=== PATIENT | female | born 1965 | race Caucasian/White ===

== ENCOUNTER 2019-09-02 10:42 | Inpatient (IN) | payer SELFPAY ==
[~2019-09-02] VITALS: Ht 172.7 cm; Wt 81.6 kg
[2019-09-02] MEDS ORDERED: ALBUTEROL SULF 0.083% NEB SOLN 3 ML NEB NEB STA (11:04)
[2019-09-02] MEDS ORDERED: IPRATROPIUM BROMIDE 0.02% 2.5 ML NEB NEB STA (11:04)
[2019-09-02] MEDS ORDERED: ACETAMINOPHEN/CODEINE ELIX 120-12 MG/5 ML UDC PO ONE (11:15)
[2019-09-02] MEDS ORDERED: DEXAMETHASONE SOD PHOS 10 MG/1 ML VIAL IM ONE (11:15)
[2019-09-02] MEDS ORDERED: SODIUM CHLORIDE 0.9% 1000ML 1,000 ML IV STA (13:40)
--- NOTE | 2019-09-02 13:45 | Diagnostic Imaging Report ---
Chest, 2 views, 09/02/2019. History: Shortness of breath. Comparison: None available. Findings: The cardiomediastinal silhouette and pulmonary vasculature are within normal limits. There is patchy left basilar opacity partially obscuring the posterior left hemidiaphragm. Median sternotomy wires are present. There are no acute osseous or soft tissue abnormalities. Impression: Left basilar opacity may represent atelectasis but early pneumonia cannot be excluded. Correlate clinically. Signed by: Ravinder Brink on 09/02/2019 1:42 PM
[2019-09-02] MEDS ORDERED: SODIUM CHLORIDE 0.9% 1000ML 1,000 ML IV ONE (14:00)
[2019-09-02] MEDS ORDERED: CEFTRIAXONE SOD 2 GM/NS 100 ML 100 ML IV ONE (14:00)
[2019-09-02] MEDS ORDERED: AZITHROMYCIN 500MG/NS 250 ML 250 ML IV ONE (14:00)
[2019-09-02 14:40] LABS: BASOPHILS % 0.2 % (0.0-1.0); EOSINOPHILS % 0.2 % (0.0-6.0); HEMATOCRIT 39.3 % (34.2-44.1); LYMPHOCYTES # (AUTO) 0.6 (1.0-3.2); LYMPHOCYTES % 4.3 % (18.0-39.1); MEAN CORPUSCULAR HEMOGLOBIN 30.8 pg (28-32); MEAN CORPUSCULAR HGB CONC 33.1 g/dL (31-35); MEAN CORPUSCULAR VOLUME 93.1 fL (81-99); MONOCYTES # (AUTO) 0.5 (0.2-0.8); MONOCYTES % 3.1 % (4.4-11.3); NEUTROPHILS # (AUTO) 13.5 (2.1-6.9); NEUTROPHILS % 91.6 % (38.7-80.0); PLATELET COUNT 447 x10e3/uL (140-360); RED BLOOD COUNT 4.22 x10e6/uL (3.6-5.1); RED CELL DISTRIBUTION WIDTH 11.8 % (11.7-14.4)
[2019-09-02 14:54] LABS: ALANINE AMINOTRANSFERASE 14 IU/L (0-55); ALBUMIN 2.8 g/dL (3.5-5.0); ALBUMIN/GLOBULIN RATIO 0.7 (0.8-2.0); ALKALINE PHOSPHATASE 68 IU/L (40-150); ANION GAP 14.9 mmol/L (8-16); BLOOD UREA NITROGEN 10 mg/dL (7-26); BUN/CREATININE RATIO 15 (6-25); CALCIUM 9.3 mg/dL (8.4-10.2); CARBON DIOXIDE 23 mmol/L (22-29); CHLORIDE 101 mmol/L (98-107); CREATININE, SERUM 0.67 mg/dL (0.57-1.11); EST GLOMERULAR FILTRATION RATE > 60 ML/MIN (60-); GLUCOSE 133 mg/dL (74-118); POTASSIUM 3.9 mmol/L (3.5-5.1); SODIUM 135 mmol/L (136-145)
[2019-09-02] MEDS ORDERED: ALBUTEROL/IPRATROPIUM 3 ML NEB NEB ONE (16:00)
[2019-09-02] MEDS ORDERED: CEFTRIAXONE SOD 1 GRAM/0.9% SOD CHL 50ML BAG IV SCH (16:15)
[2019-09-02] MEDS ORDERED: SODIUM CHLORIDE FLUSH 10 ML SYR INJ PRN (16:15)
[2019-09-02] MEDS ORDERED: ASPIRIN 81 MG CHEW TAB PO ONE (16:15)
[2019-09-02] MEDS ORDERED: AZITHROMYCIN 500MG/SOD CHL 0.9% 250ML BAG IV SCH (16:15)
[2019-09-02] MEDS: ALBUTEROL SULF 0.083% NEB SOLN 3 ML NEB NEB SCH ×3 (16:30→23:50)
--- NOTE | 2019-09-02 17:11 | Diagnostic Imaging Report ---
CT of the chest, with contrast, 09/02/2019. History: Shortness of breath. Abnormal prior chest x-ray. Comparison: Chest x-ray from earlier today. Technique: Multidetector CT scanning of the chest was performed from the level of the apices to the upper abdomen after intravenous administration of contrast. Coronal and sagittal multiplanar reformations were obtained. RADIATION DOSE: Total DLP: 5:15 mGy*cm Dose modulation, iterative reconstruction, and/or weight based adjustment of the mA/kV was utilized to reduce the radiation dose to as low as reasonably achievable. Discussion: Chest: The atria, ventricles, aorta, and main pulmonary artery are normal in size. The thyroid is unremarkable. Subcentimeter mediastinal and hilar nodes are present. There is no evidence of axillary or mediastinal adenopathy. Patchy consolidation is present in the medial and posterior segments of the left lower lobe, corresponding to the radiographic abnormality. There is no evidence of pleural effusion. Scattered peripheral nodular opacities are present throughout the right lower lobe and both upper lobes. Limited evaluation of the upper abdomen shows normal adrenal glands. Bones and soft tissues: No acute abnormality. Degenerative changes are noted in the thoracic spine. Median sternotomy wires are present. IMPRESSION: Findings consistent with left lower lobe pneumonia. Signed by: Ravinder Brink on 09/02/2019 5:08 PM
[2019-09-02] MEDS: NICOTINE 7 MG PATCH TOP SCH (18:16)
[2019-09-02] MEDS: FAMOTIDINE 20 MG/2 ML VIAL IV SCH (18:16)
[2019-09-02] MEDS: AZITHROMYCIN 500MG/NS 250 ML 250 ML IV SCH (18:16)
[2019-09-02] MEDS ORDERED: IOPAMIDOL 370 MG/ML 200 ML INFUS..BTL INJ ONE (18:19)
[2019-09-02] MEDS ORDERED: SODIUM CHLORIDE 0.9% 50ML 50 ML ONE (18:19)
[2019-09-02] MEDS: IPRATROPIUM BROMIDE 0.02% 2.5 ML NEB NEB SCH ×2 (20:30→23:50)
--- NOTE | 2019-09-02 22:29 | NUR ---
History of present illness: 53-year-old lady who is being admitted to the hospital with an impression of bacterial pneumonia. I did speak with the ED physician Dr. Lange who did advise him about patient's condition. The patient was noted to have a WBC count of 14.7 and lactic acid was negative. The patient is being placed on intr avenous antibiotics and sepsis is not suspected. Basically patient presented with a chief complaint of having Fever and chills along with muscle ache and flulike type symptoms. The symptoms have been going on during the last 2 weeks or so getting worse today which is 09/02/2019. She was placed on treatment for bronchitis at another ER facility approximately 2 weeks ago and given breathing treatments along with Tamiflu. Despite all this she has not have enough improvement. Past medical history: Past surgical history: No previous surgery Medication currently taking per chart: Allergies: Per chart Social history: Unknown if the patient has smoked. No alcohol abuse Physical examination: Did reveal a patient alert oriented person time place the patient was in no distress at the time of arrival to the emergency department and had an O2 saturation of 93% respiratory 24: HEENT: Nose normal, pharynx abnormal, mild generalized pharyngeal erythema. No pharyngeal vesicles or ulcerations. Uvula midline. Neck: Supple no JVD Lungs: Clear to auscultation Heart: Regular rate and rhythm, no murmurs no gallops Abdomen: Soft non tender, no guarding. Extremities: No edema Neurologic: Alert oriented 3, no focal weakness. Psychiatrist: Normal mood, normal judgment. Skin: No rashes EKG: No acute ischemia. Normal sinus rhythm. Rate 26. Chest x-rays: Left basilar opacity. Assessment: Pneumonia Leukocytosis Plan of care: The patient been placed on azithromycin and Rocephin intravenously. Patient is being placed on breathing treatments consist of albuterol every 4 hours and Atrovent. The patient was given dose of aspirin. Follow-up labs.
--- NOTE | 2019-09-02 22:29 | NUR ---
History of present illness: 53-year-old lady who is being admitted to the hospital with an impression of bacterial pneumonia. I did speak with the ED physician Dr. Lange who did advise him about patient's condition. The patient was noted to have a WBC count of 14.7 and lactic acid was negative. The patient is being placed on intr avenous antibiotics and sepsis is not suspected. Basically patient presented with a chief complaint of having Fever and chills along with muscle ache and flulike type symptoms. The symptoms have been going on during the last 2 weeks or so getting worse today which is 09/02/2019. She was placed on treatment for bronchitis at another ER facility approximately 2 weeks ago and given breathing treatments along with Tamiflu. Despite all this she has not have enough improvement. Past medical history: Has been healthy with no significant medical problems. No hypertension. No diabetes mellitus. No history of myocardial infarction. No CVA. Past surgical history: No previous surgery Family history: There is a family history of hypertension, kidney failure, coronary disease and non leukemic lymphatic malignancy. Medication currently taking per chart: Allergies: Per chart Social history: Unknown if the patient has smoked. No alcohol abuse Physical examination: Did reveal a patient alert oriented person time place the patient was in no distress at the time of arrival to the emergency department and had an O2 saturation of 93% respiratory 24: Blood pressure: 116/52, respiration 18, pulse 85, temperature 97.6 HEENT: Nose normal, pharynx abnormal, mild generalized pharyngeal erythema. No pharyngeal vesicles or ulcerations. Uvula midline. Neck: Supple no JVD Lungs: No respiratory distress. Abnormal breathing sounds. Wheezing present. Decreased breathing sounds Heart: Regular rate and rhythm, no murmurs no gallops Abdomen: Soft non tender, no guarding. Extremities: No edema Neurologic: Alert oriented 3, no focal weakness. Psychiatrist: Normal mood, normal judgment. Skin: No rashes EKG: No acute ischemia. Normal sinus rhythm. Rate 26. Chest x-rays: Left basilar opacity. Assessment: Pneumonia Leukocytosis Plan of care: The patient been placed on azithromycin and Rocephin intravenously. Patient is being placed on breathing treatments consist of albuterol every 4 hours and Atrovent. Please medications noted
[2019-09-02 23:00] VITALS: BP 116/52
--- NOTE | 2019-09-02 23:00 | NUR ---
patient received from the emergency room per wheelchair, assessment done.
--- NOTE | 2019-09-02 23:32 | NUR ---
DR. PITTS WITH ESCALATOR MECHANIC VISITED.
[2019-09-03] VITALS (8 sets, daily range): BP systolic 99–119; BP diastolic 53–67
[2019-09-03] MEDS: ACETAMINOPHEN/CODEINE ELIX 120-12 MG/5 ML UDC PO PRN ×3 (01:26→16:53)
[2019-09-03] MEDS: ALBUTEROL SULF 0.083% NEB SOLN 3 ML NEB NEB SCH ×6 (02:58→23:48)
--- NOTE | 2019-09-03 05:29 | NUR ---
PATIENT WENT FOR CHEST XRAY.
--- NOTE | 2019-09-03 06:18 | Diagnostic Imaging Report ---
EXAMINATION: CHEST 2 VIEWS INDICATION: ^Pneumonia ^[id number] ^0501 COMPARISON: 09/02/2019 FINDINGS: PA and lateral views TUBES and LINES: None. LUNGS: Lungs are well inflated. Less conspicuous left basilar opacities. PLEURA: No pleural effusion or pneumothorax. HEART AND MEDIASTINUM: The cardiomediastinal silhouette is unremarkable. Median sternotomy wires. BONES AND SOFT TISSUES: No acute osseous lesion. Soft tissues are unremarkable. UPPER ABDOMEN: No free air under the diaphragm. IMPRESSION: Less conspicuous left basilar opacities when compared to prior x-ray. Signed by: Dr. Breezy Troncoso MD on 09/03/2019 6:14 AM
[2019-09-03 06:29] LABS: ALANINE AMINOTRANSFERASE 12 IU/L (0-55); ALBUMIN 2.5 g/dL (3.5-5.0); ALBUMIN/GLOBULIN RATIO 0.7 (0.8-2.0); ALKALINE PHOSPHATASE 56 IU/L (40-150); BLOOD UREA NITROGEN 12 mg/dL (7-26); BUN/CREATININE RATIO 19 (6-25); CALCIUM 8.9 mg/dL (8.4-10.2); CARBON DIOXIDE 24 mmol/L (22-29); CHLORIDE 106 mmol/L (98-107); CREATINE KINASE 24 IU/L (29-168); CREATININE, SERUM 0.63 mg/dL (0.57-1.11); EST GLOMERULAR FILTRATION RATE > 60 ML/MIN (60-); GLUCOSE 118 mg/dL (74-118); SODIUM 137 mmol/L (136-145)
--- NOTE | 2019-09-03 07:00 | NUR ---
received am report and rounds done. pt is alert resting in bed, no s/s of distress. call light within reach and instructed pt to call RN for help. NC re-applied to pt with 2 L of oxygen
[2019-09-03 07:11] LABS: BASOPHILS % 0.1 % (0.0-1.0); HEMATOCRIT 35.3 % (34.2-44.1); HEMOGLOBIN 11.5 g/dL (12.0-16.0); LYMPHOCYTES # (AUTO) 0.8 (1.0-3.2); LYMPHOCYTES % 6.3 % (18.0-39.1); MEAN CORPUSCULAR HEMOGLOBIN 30.4 pg (28-32); MEAN CORPUSCULAR HGB CONC 32.6 g/dL (31-35); MEAN CORPUSCULAR VOLUME 93.4 fL (81-99); MONOCYTES # (AUTO) 0.7 (0.2-0.8); MONOCYTES % 5.5 % (4.4-11.3); NEUTROPHILS # (AUTO) 10.8 (2.1-6.9); NEUTROPHILS % 87.5 % (38.7-80.0); PLATELET COUNT 457 x10e3/uL (140-360); RED BLOOD COUNT 3.78 x10e6/uL (3.6-5.1); RED CELL DISTRIBUTION WIDTH 11.9 % (11.7-14.4)
[2019-09-03] MEDS: IPRATROPIUM BROMIDE 0.02% 2.5 ML NEB NEB SCH ×4 (07:16→23:48)
[2019-09-03] MEDS: FAMOTIDINE 20 MG/2 ML VIAL IV SCH ×2 (08:53→16:52)
[2019-09-03] MEDS ORDERED: SODIUM CHLORIDE 0.9% 250ML 250 ML ONE (13:23)
[2019-09-03] MEDS: CEFTRIAXONE SOD 1 GM/NS 50 ML 50 ML IV SCH (13:27)
[2019-09-03] MEDS: ENOXAPARIN SOD INJ 40 MG/0.4 ML SYR SC SCH (13:33)
[2019-09-03] MEDS ORDERED: ACETAMINOPHEN 325 MG TAB PO PRN (15:15)
[2019-09-03 15:19] LABS: CREATINE KINASE MB 0.8 ng/mL (0-5.0)
[2019-09-03] MEDS: NICOTINE 7 MG PATCH TOP SCH (16:52)
[2019-09-03] MEDS: AZITHROMYCIN 500MG/NS 250 ML 250 ML IV SCH (16:52)
--- NOTE | 2019-09-03 20:00 | NUR ---
RECEIVED REPORT FROM 7AM NURSE, PATIENT RESTING IN BED WATCHING TV, C/O HEADACHE, WILL MEDICATE ORDERED. WILL CONTINUE TO MONITOR.
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
[2019-09-04] VITALS (7 sets, daily range): BP systolic 102–124; BP diastolic 57–67
--- NOTE | 2019-09-04 | NUR ---
PATIENT'S ASLEEP, NO DISTRESS NOTED. CALL LIGHT REMAIN IN REACH. WILL CONTINUE TO MONITOR.
--- NOTE | 2019-09-04 00:14 | Progress Note ---
DATE: 09/03/2019 SUBJECTIVE: The patient was doing fine, looking better. Denies nausea or vomiting. No chest pain. No fevers or chills. OBJECTIVE: GENERAL: The patient is alert and oriented to person, time, and place. The patient in no distress. VITAL SIGNS: Stable vital signs. Her blood pressure 118/63, respirations 17, pulse 82, afebrile. HEENT: Normocephalic and atraumatic. NECK: Supple. No JVD. LUNGS: decreased breathing sounds. CARDIOVASCULAR: Regular rate and rhythm. ABDOMEN: Soft and nontender. EXTREMITIES: No edema. NEUROLOGIC: Nonfocal. ASSESSMENT: 1. Pneumonia. 2. Leukocytosis. PLAN OF CARE: plan to do MRCP. MD LENIN Maravilla/LUDMILA /[id number] MTDYoung
[2019-09-04] MEDS ORDERED: PROAIR HFA INH8.5 GM INH (00:37)
[2019-09-04] MEDS ORDERED: AUGMENTIN 875-1 EACH PO (00:37)
[2019-09-04] MEDS: ALBUTEROL SULF 0.083% NEB SOLN 3 ML NEB NEB SCH ×5 (02:40→19:00)
--- NOTE | 2019-09-04 07:17 | NUR ---
REPORT GIVEN TO AM NURSE.
--- NOTE | 2019-09-04 07:27 | NUR ---
Received patient, a/ox3, rounds completed, no distress, minimal pain from coughing, substernal area, but well managed, call light within reach, will monitor. On O2, will attempt to wean off
[2019-09-04] MEDS: IPRATROPIUM BROMIDE 0.02% 2.5 ML NEB NEB SCH ×3 (07:47→19:00)
[2019-09-04 07:54] LABS: HIV 1&2 AB SCREEN NON-REACTIVE (NONREACTIVE)
[2019-09-04] MEDS: ACETAMINOPHEN/CODEINE ELIX 120-12 MG/5 ML UDC PO PRN ×2 (08:16→14:06)
[2019-09-04] MEDS: ENOXAPARIN SOD INJ 40 MG/0.4 ML SYR SC SCH (08:55)
[2019-09-04] MEDS: FAMOTIDINE 20 MG/2 ML VIAL IV SCH ×2 (08:55→17:15)
[2019-09-04] MEDS ORDERED: DOCUSATE SODIUM 100 MG CAP PO SCH (09:00)
--- NOTE | 2019-09-04 09:10 | Diagnostic Imaging Report ---
EXAMINATION: CHEST SINGLE (PORTABLE) INDICATION: Pneumonia COMPARISON: Chest radiograph 09/03/2019 FINDINGS: LINES/TUBES:None LUNGS:The lungs are moderately inflated. Mild patchy opacities at the left lung base and right midlung. PLEURA:No pleural effusion or pneumothorax. MEDIASTINUM:The cardiomediastinal silhouette appears unchanged in size and shape. BONES/SOFT TISSUES:No acute osseous injury. Sternotomy wires intact. ABDOMEN:No free air under the diaphragm. IMPRESSION: Mild patchy opacities at the left lung base and right midlung, consistent with aspiration or pneumonia. These findings are better appreciated on the chest CT of 09/02/2019. Signed by: José Luis Molina MD on 09/04/2019 9:07 AM
--- NOTE | 2019-09-04 10:30 | NUR ---
PT NEEDED HOUSING OPTIONS, GAVE PACKET OF INFORMATION WITH COMMUNITY [employer]OURCES FOR ASSISTANCE WITH LOW TO NO INCOME TO PATIENT. RESOURCES THAT PATIENT MAY BE ABLE TO FOLLOW UP UPON DISCHARGE. PT EDUCATED ON EACH RESOURCE AND UNDERSTANDING HOW TO FOLLOW UP TO SEE IF QUALIFIED FOR EACH RESOURCE.
--- OUTSIDE RECORDS SUMMARY | 2019-09-04 13:56 | XMS REPORT ---
Author Author [facility] Address Unknown Phone Unavailable Care Team Providers Care Belt Notcher Name Role Phone Cedric MAJOR Unavailable Unavailable Problems This patient has no known problems. Allergies, Adverse Reactions, Alerts This patient has no known allergies or adverse reactions. Medications This patient has no known medications. Results Test Description Test Time Test Comments Text Results Atomic Results Result Comments CHEST SINGLE (PORTABLE) 2019-09-04 09:04:00 [place] [address] Patient Name: LUZMARIA WILKES MR #: [id number] : 1965 Age/Sex: 53/F Req #: [id number] [facility] Physician: ATLI MAJOR M.D. Ordered by: MARIANNE BUTT MD Report #: [id number] Location: MED/SURG Room/Bed: [facility] Procedure: [id number] DX/CHEST SINGLE (PORTABLE) Exam Date: 09/04/19 Exam Time: 0530 REPORT STATUS: Signed EXAMINATION: CHEST SINGLE (PORTABLE) INDICATION: Pneumonia COMPARISON: Chest radiograph 09/03/2019 FINDINGS: LINES/TUBES:None LUNGS:The lungs are moderately inflated. Mild patchy opacities at the left lung base and right midlung. PLEURA:No pleural effusion or pneumothorax. MEDIASTINUM:The cardiomediastinal silhouette appears unchanged in size and shape. BONES/SOFT TISSUES:No acute osseous injury. Sternotomy wires intact. ABDOMEN:No free air under the diaphragm. IMPRESSION: Mild patchy opacities at the left lung base and right midlung, consistent with aspiration or pneumonia. These findings are better appreciated on the chest CT of 09/02/2019. Signed by: Germain Cuadra MD on 09/04/2019 9:07 AM Dictated By: GERMAIN CUADRA MD 6 Transcribed By: CLARIBEL on 09/04/19906 COPY TO: MARIANNE BUTT MD, [facility] CHEST 2 VIEWS 2019-09-03 06:13:00 [place] [address] Patient Name: LUZMARIA WILKES MR #: [id number] : 1965 Age/Sex: 53/F Req #: [id number] Adm Physician: TALI MAJOR M.D. Ordered by: MARYAM PRIDE MD Report #: [id number] Location: MED/SURG Room/Bed: [facility] Procedure: [id number] DX/CHEST 2 VIEWS Exam Date: 09/03/19 Exam Time: 500 REPORT STATUS: Signed EXAMINATION: CHEST 2 VIEWS INDICATION: Pneumonia [id number] COMPARISON: 09/02/2019 FINDINGS: PA and lateral views TUBES and LINES: None. LUNGS: Lungs are well inflated. Less conspicuous left basilar opacities. PLEURA: No pleural effusion or pneumothorax. HEART AND MEDIASTINUM: The cardiomediastinal silhouette is unremarkable. Median sternotomy wires. BONES AND SOFT TISSUES: No acute osseous lesion. Soft tissues are unremarkable. UPPER ABDOMEN: No free air under the diaphragm. IMPRESSION: Less conspicuous left basilar opacities when compared to prior x-ray. Signed by: Dr. Breezy Guzman MD on 09/03/2019 6:14 AM Dictated By: BREEZY GUZMAN MD 3 Transcribed By: CLARIBEL on 09/03/19613 COPY TO: MARYAM PRIDE MD CT CHEST W 2019-09-02 17:03:00 [place] [address] Patient Name: LUZMARIA WILKES MR #: [id number] : 1965 Age/Sex: 53/F Req #: [id number] Adm Physician: Ordered by: RAVINDER ESPINOZA NP Report #: [id number] Location: ER Room/Bed: Procedure: [id number] CT/CT CHEST W Exam Date: 09/02/19 Exam Time: 1550 REPORT STATUS: Signed CT of the chest, with contrast, 09/02/2019. His tory: Shortness of breath. Abnormal prior chest x-ray. Comparison: Chest x- ray from earlier today. Technique: Multidetector CT scanning of the chest was performed from the level of the apices to the upper abdomen after intravenous administration of contrast. Coronal and sagittal multiplanar reformations were obtained. RADIATION DOSE: Total DLP: 5:15 mGy*cm Dose modulation, iterative reconstruction, and/or weight based adjustment of the mA/kV was utilized to reduce the radiation dose to as low as reasonably achievable. Discussion: Chest: The atria, ventricles, aorta, and main pulmonary artery are normal in size. The thyroid is unremarkable. Subcentimeter mediastinal and hilar nodes are present. There is no evidence of axillary or mediastinal adenopathy. Patchy consolidation is present in the medial and posterior segments of the left lower lobe, corresponding to the radiographic abnormality. There is no evidence of pleural effusion. Scattered peripheral nodular opacities are present throughout the right lower lobe and both upper lobes. Limited evaluation of the upper abdomen shows normal adrenal glands. Bones and soft tissues: No acute abnormality. Degenerative changes are noted in the thoracic spine. Median sternotomy wires are present. IMPRESSION: Findings consistent with left lower lobe pneumonia. Signed by: Ravinder Brink on 09/02/2019 5:08 PM Dictated By: RAVINDER BRINK MD 07 Transcribed By: CLARIBEL on 09/02/191707 COPY TO: RAVINDER ESPINOZA INTERNET MARKETING ANALYST CHEST 2 VIEWS 2019-09-02 13:40:00 [place] [address] Patient Name: LUZMARIA WILKES MR #: [id number] : 1965 Age/Sex: 53/F Req #: [id number] Adm Physician: Ordered by: RAVINDER ESPINOZA INTERNET MARKETING ANALYST Report #: [id number] Location: ER Room/Bed: Procedure: [id number] DX/CHEST 2 VIEWS Exam Date: 09/02/19 Exam Time: 1210 REPORT STATUS: Signed Chest, 2 views, 09/02/2019. History: Shortness of breath. Comparison: None available. Findings: The cardiomediastinal silhouette and pulmonary vasculature are within normal limits. There is patchy left basilar opacity partially obscuring the posterior left hemidiaphragm. Median sternotomy wires are present. There are no acute osseous or soft tissue abnormalities. Impression: Left basilar opacity may represent atelectasis but early pneumonia cannot be excluded. Correlate clinically. Signed by: Ravinder Brink on 09/02/2019 1:42 PM Dictated By: RAVINDER BRINK MD 134 Transcribed By: CLARIBEL on 09/02/191341 COPY TO: RAVINDER ESPINOZA NP
[2019-09-04] MEDS: CEFTRIAXONE SOD 1 GM/NS 50 ML 50 ML IV SCH (14:05)
--- NOTE | 2019-09-04 15:10 | NUR ---
Pulmonary Medicine DATE: 09/04/2019 subjective: 93-95% saturation on room air fio2 walking mildly better today REVIEW OF SYSTEMS: No double vision. No seizures. PHYSICAL EXAMINATION: VITAL SIGNS: vital signs noted reviewed per the chart record. GENERAL: no acute distress, alert and calm. Mildly anxious intermittently. HEENT: Normocephalic atraumatic. NECK: Supple. Throat midline. LUNGS: Bilateral air entry, few rare rhonchi, mostly clear. CARDIOVASCULAR: S1, S2. No murmurs, rubs, or gallops. ABDOMEN: Soft, nontender. EXTREMITIES: No clubbing. No cyanosis. There is no edema. INTEGUMENT: No rash. No purpura. LABORATORY DATA: White count 12, 35 hematocrit, 467 platelets. 4.0 potassium, 12 BUN, 0.63 creatinine. IMPRESSION AND PLAN: 1. Community-acquired pneumonia, hospital acquired organisms plausible given recent hospitalization. Mechanism is likely post influenza pneumonia. Already improving on the 1st day with white count and x-ray improving. 2. History of chronic smoke. 3. Associated anxiety. 4. History of previous substance abuse. 5. Mild leukocytosis. Outpatient chest x-ray to resolution of findings DVT prophylaxis Weaned off oxygen Discharge planning smoking cessation Thank you very much, Dr. Mendez for this consult.
--- NOTE | 2019-09-04 16:35 | Progress Note ---
DATE: 09/04/2019 SUBJECTIVE: The patient is doing fine, breathing better. Denies chest pain. Except in terms of her angina however, having some discomfort on the left side of the chest. No fever. No chills. No abdominal pain. No nausea. No vomiting. PHYSICAL EXAMINATION: GENERAL: The patient is alert and oriented to person, time, and place. The patient is in no distress. VITAL SIGNS: Blood pressure 104/57, respirations of 18, pulse 70, and temperature 96.8. HEENT: Normocephalic and atraumatic. NECK: Supple. No JVD. LUNGS: Clear to auscultation. CARDIOVASCULAR: Regular rate and rhythm. ABDOMEN: Soft and nontender. EXTREMITIES: No edema. NEUROLOGIC: Nonfocal. LABORATORY DATA: CBC as of September 03, 2019, revealed hemoglobin 11.5, white blood cell count 12.33, platelet count 457,000. Sodium 137, potassium 4.0, chloride 105, CO2 of 24, BUN 12, creatinine 0.63 as of September 03, 2019. ASSESSMENT: 1. Pneumonia. 2. Leukocytosis. PLAN OF CARE: Continue antibiotic as advised. Pulmonary consultation has been requested with Dr. Sher. MD LENIN Maravilla/LUDMILA /[id number] MTDD
[2019-09-04] MEDS: AZITHROMYCIN 500MG/NS 250 ML 250 ML IV SCH (17:15)
[2019-09-04] MEDS: NICOTINE 7 MG PATCH TOP SCH (17:15)
--- NOTE | 2019-09-04 17:32 | NUR ---
Rounds by Dr. Sher today and left prescriptions in chart and cleared patient for discharge from his perspective. Patient with intermittent cough, medicated prn, no distress, call light within reach, weaned off oxygen and O2Sat at 94%RA, will monitor
--- NOTE | 2019-09-04 18:13 | NUR ---
Call to Dr. Mendez and he states he will go ahead and discharge patient himself on the system
--- NOTE | 2019-09-04 19:00 | NUR ---
Received patient awake in bed, with ongoing IV antibiotic, not in distress, call light within easy reach. Patient verbalized that she does not have somebody to pick her up or transportation upon discharge, will communicate with the Nurse Internet Sales Consultant
--- NOTE | 2019-09-04 19:30 | NUR ---
Called [employer] to get a taxi voucher
--- NOTE | 2019-09-04 20:10 | NUR ---
Patient called, a friend will pick her up around 2129, Ranjit Poole notified
--- NOTE | 2019-09-04 21:15 | NUR ---
Patient was discharged in good condition, vital signs stable
== END 2019-09-04 21:15 | disposition home or self-care (01) | DRG 195 ==
LOC: ER 10:42 → ERHOLD 16:14 → MED/SURG 23:04
PROVIDERS: ADMIT Internal Medicine; ATTEND Internal Medicine
DX: J15.9 Unspecified bacterial pneumonia (principal); Y95 Nosocomial condition; F41.9 Anxiety disorder, unspecified; Z87.891 Personal history of nicotine dependence; F19.11 Other psychoactive substance abuse, in remission
CPT/HCPCS: 36415; 71045; 71046; 71260; 80053; 82550; 82553; 83605; 83880; 84484; 85025; 85379; 87040; 87390; 93005; 94640; 99284; G0433; G0435; J0456; J0696; J1100; J1650; J7030; J7050; Q9967